=== PATIENT | male | born 1960 | race Caucasian/White ===

== ENCOUNTER 2020-06-11 08:41 | Outpatient (CLI) | payer BC, SELFPAY | END 2020-06-11 08:42 | disposition home or self-care (01) | LOC: CHSCOVIDVC 08:41 | PROVIDERS: PCP Family Medicine | DX: Z23 Encounter for immunization (principal) | CPT/HCPCS: 0011A; 91301 ==

== ENCOUNTER 2020-07-09 08:41 | Outpatient (CLI) | payer BC, SELFPAY | END 2020-07-09 08:42 | disposition home or self-care (01) | LOC: CHSCOVIDVC 08:41 | PROVIDERS: PCP Family Medicine | DX: Z23 Encounter for immunization (principal) | CPT/HCPCS: 0012A; 91301 ==